=== PATIENT | male | born 1980 | race Two or more races ===

== ENCOUNTER 2017-12-23 13:00 | Inpatient (IN) | payer OTHER ==
[~2017-12-23] VITALS: Ht 172.7 cm; Wt 103.9 kg
[2017-12-23 13:14] VITALS: BP_SYST 149
[2017-12-23 13:53] LABS: EOSINOPHILS # (AUTO) 0.3 K/uL (0.0-0.4); EOSINOPHILS % (AUTO) 3.7 % (0.0-4.0); HEMATOCRIT 31.4 % (36-54); HEMOGLOBIN 10.1 g/dL (14.0-18.0); LYMPHOCYTES # (AUTO) 1.3 K/uL (1.0-5.5); LYMPHOCYTES % (AUTO) 19.5 % (20.5-51.5); MEAN CORPUSCULAR HEMOGLOBIN 29 pg (27-31); MEAN CORPUSCULAR HGB CONC 32 % (32-36); MEAN CORPUSCULAR VOLUME 89 fL (79.0-98.0); MONOCYTES # (AUTO) 0.4 K/uL (0.0-1.0); MONOCYTES % (AUTO) 6.5 % (1.7-9.3); PLATELET COUNT (AUTO) 259 K/uL (130-430); RED BLOOD CELL COUNT(AUTO) 3.55 MIL/uL (4.2-6.2); RED CELL DISTRIBUTION WIDTH 15.8 % (9.0-15.0); WHITE BLOOD COUNT (AUTO) 6.8 K/uL (4.8-10.8)
[2017-12-23 13:56] LABS: BASOPHILS % (AUTO) 0.5 % (0.0-2.0); NEUTROPHILS # (AUTO) 4.8 K/uL (1.8-7.7); NEUTROPHILS % (AUTO) 69.8 % (40.0-70.0)
[2017-12-23] MEDS ORDERED: GLIM1TAB PO (14:08)
[2017-12-23] MEDS ORDERED: COR12.5 PO (14:08)
[2017-12-23] MEDS ORDERED: FURO-149 PO (14:08)
[2017-12-23 14:16] LABS: CALCIUM 8.1 mg/dL (8.4-11.0); POTASSIUM 4.6 mmol/L (3.5-5.1)
[2017-12-23 14:21] LABS: ALBUMIN 1.8 g/dL (3.4-4.8); CREATININE 9.71 mg/dL (0.55-1.30); PROTHROMBIN TIME 10.4 SECS (9.5-12.5); TOTAL BILIRUBIN 0.3 mg/dL (0.0-1.0)
[2017-12-23 14:45] LABS: CKMB RELATIVE INDEX 1.6 (0.0-2.9); CREATINE KINASE MB 8.6 ng/mL (0-3.6)
[2017-12-23] MEDS ORDERED: INSULIN ASPART 100 UNITS/ML, 10 ML VIAL (NovoLOG) SUBCUT PRN (15:30)
[2017-12-23 15:54] VITALS: BP_SYST 155
[2017-12-23 16:00] VITALS: BP_SYST 159
[2017-12-23] MEDS ORDERED: TUBERCULIN,PURIF.PROT.DERIV. 0.1 ML SYR ID ONE (17:00)
[2017-12-23] MEDS: FUROSEMIDE 100 MG in D5W 90 ML IV SCH (18:41)
[2017-12-23 19:57] LABS: TOTAL IRON BIND. CAPACITY 242 ug/dL (250-450)
[2017-12-23 20:48] VITALS: BP_SYST 148
[2017-12-23] MEDS: CARVEDILOL 6.25 MG TABLET (COREG) PO SCH (21:00)
[2017-12-24 00:31] VITALS: BP_SYST 151
[2017-12-24 02:01] LABS: BILIRUBIN,URINE NEGATIVE (NEGATIVE); BLOOD, URINE 1+ (NEGATIVE); CLARITY/URINE CLEAR (CLEAR); COLOR,URINE YELLOW (YELLOW); GLUCOSE,URINE 1+ (NEGATIVE); KETONES,URINE NEGATIVE (NEGATIVE); LEUKOCYTE ESTERASE ,URINE NEGATIVE (NEGATIVE); NITRITE, URINE NEGATIVE (NEGATIVE); PROTEIN URINE 3+ (NEGATIVE); UROBILINOGEN,URINE 0.2 (0.2-1.0)
[2017-12-24 02:18] LABS: BACTERIA,URINE FEW /HPF (None Seen); WBC,URINE 0-3 /HPF (0-3)
[2017-12-24 02:19] LABS: HYALINE CASTS, URINE 0-10 /LPF (None Seen); URINE AMORPHOUS URATE 1+ /HPF (None Seen)
[2017-12-24 04:30] VITALS: BP_SYST 153
[2017-12-24 06:41] LABS: BASOPHILS # (AUTO) 0.1 K/uL (0.0-0.2); BASOPHILS % (AUTO) 1.3 % (0.0-2.0); EOSINOPHILS # (AUTO) 0.3 K/uL (0.0-0.4); EOSINOPHILS % (AUTO) 5.2 % (0.0-4.0); HEMATOCRIT 30.6 % (36-54); HEMOGLOBIN 9.7 g/dL (14.0-18.0); LYMPHOCYTES # (AUTO) 1.7 K/uL (1.0-5.5); LYMPHOCYTES % (AUTO) 25.8 % (20.5-51.5); MEAN CORPUSCULAR HEMOGLOBIN 28 pg (27-31); MEAN CORPUSCULAR HGB CONC 32 % (32-36); MEAN CORPUSCULAR VOLUME 88 fL (79.0-98.0); MONOCYTES # (AUTO) 0.5 K/uL (0.0-1.0); MONOCYTES % (AUTO) 8.4 % (1.7-9.3); NEUTROPHILS # (AUTO) 3.9 K/uL (1.8-7.7); NEUTROPHILS % (AUTO) 59.3 % (40.0-70.0); PLATELET COUNT (AUTO) 239 K/uL (130-430); RED BLOOD CELL COUNT(AUTO) 3.48 MIL/uL (4.2-6.2); RED CELL DISTRIBUTION WIDTH 15.8 % (9.0-15.0); WHITE BLOOD COUNT (AUTO) 6.5 K/uL (4.8-10.8)
[2017-12-24 07:01] LABS: ALBUMIN 1.5 g/dL (3.4-4.8); CALCIUM 7.9 mg/dL (8.4-11.0); POTASSIUM 4.7 mmol/L (3.5-5.1); TOTAL BILIRUBIN 0.3 mg/dL (0.0-1.0)
[2017-12-24 07:06] LABS: CREATININE 10.16 mg/dL (0.55-1.30)
[2017-12-24 07:57] VITALS: BP_SYST 138
[2017-12-24] MEDS: CARVEDILOL 6.25 MG TABLET (COREG) PO SCH ×2 (08:01→21:41)
[2017-12-24 12:27] VITALS: BP_SYST 152
[2017-12-24] MEDS ORDERED: DEXTROSE 50% JECT 50 ML DISP.SYRIN IVP ONE (13:00)
[2017-12-24] MEDS ORDERED: NS 100 ML BAG IV ONE (13:36)
[2017-12-24] MEDS ORDERED: PROPOFOL 200MG/ 20ML VIAL (DIPRIVAN) IV ONE (13:36)
[2017-12-24] MEDS ORDERED: MIDAZOLAM HCL 5 MG/5 ML VIAL IVP ONE (13:36)
[2017-12-24] MEDS ORDERED: HEPARIN SODIUM,PORCINE 5000 UNITS/ML VIAL SUBCUT ONE (13:36)
[2017-12-24] MEDS ORDERED: LIDOCAINE 2%, 20 ML MDV INJ ONE (13:36)
[2017-12-24] MEDS ORDERED: NS 1000 ML IV.SOLN IV ONE (13:36)
[2017-12-24] MEDS ORDERED: LIDOCAINE 1% 10 MG/ML, 20 ML MDV INJ ONE (13:36)
[2017-12-24] MEDS ORDERED: CEFAZOLIN 1 GM IVPB PREMIX 50 ML IV ONE (13:36)
[2017-12-24] MEDS ORDERED: fentaNYL CITRATE/PF 100 MCG/2 ML AMP IVP ONE (13:36)
[2017-12-24] MEDS ORDERED: ONDANSETRON HCL 4 MG/2 ML VIAL IVP ONE ×2 (13:36→13:45)
[2017-12-24] MEDS ORDERED: HYDROmorphone 1 MG INJ. 1 MG/ML AMPUL IVP PRN (13:45)
[2017-12-24] MEDS ORDERED: MIDAZOLAM HCL 5 MG/5 ML VIAL IVP PRN (13:45)
[2017-12-24] MEDS ORDERED: MEPERIDINE HCL/PF 25 MG/ML DISP.SYRIN IVP PRN (13:45)
[2017-12-24] MEDS ORDERED: fentaNYL CITRATE/PF 100 MCG/2 ML AMP IVP PRN (13:45)
[2017-12-24] MEDS ORDERED: NALOXONE HCL 0.4 MG/ML AMP (NARCAN) IVP ONE (13:45)
[2017-12-24] MEDS: FUROSEMIDE 100 MG in D5W 90 ML IV SCH (13:47)
[2017-12-24 17:48] VITALS: BP_SYST 143
[2017-12-24 20:00] VITALS: BP_SYST 137
[2017-12-25 00:15] VITALS: BP_SYST 104
[2017-12-25 07:52] VITALS: BP_SYST 111
[2017-12-25 08:27] LABS: HEPATITIS A AB, IgM Negative (Negative); HEPATITIS B CORE AB, IgM Negative (Negative); HEPATITIS B SURFACE AG Negative (Negative)
[2017-12-25] MEDS: FUROSEMIDE 100 MG in D5W 90 ML IV SCH (08:42)
[2017-12-25 09:09] LABS: FOLATE (FOLIC ACID) 11.7 ng/mL (>3.0)
[2017-12-25] MEDS: CARVEDILOL 6.25 MG TABLET (COREG) PO SCH ×2 (09:11→21:41)
[2017-12-25 12:26] VITALS: BP_SYST 122
[2017-12-25 14:11] LABS: CALCIUM 8.2 mg/dL (8.4-11.0); POTASSIUM 4.5 mmol/L (3.5-5.1)
[2017-12-25 14:17] LABS: CREATININE 8.03 mg/dL (0.55-1.30)
[2017-12-25 16:56] VITALS: BP_SYST 147
[2017-12-25 20:07] VITALS: BP_SYST 155
[2017-12-25] MEDS ORDERED: NEPHROVITE, (FOLIC ACID/VITAMIN B COMP W-C 1 TAB) PO ONE (22:00)
[2017-12-26 00:36] VITALS: BP_SYST 126
[2017-12-26 04:45] VITALS: BP_SYST 116
[2017-12-26 08:00] VITALS: BP_SYST 130
[2017-12-26] MEDS ORDERED: DEXTROSE 50%-WATER 50 ML DISP.SYRIN IVP PRN ×2 (08:00)
[2017-12-26] MEDS ORDERED: GLUCOSE 15 GM GEL (in 37.5 GM TUBE) PO PRN ×2 (08:00)
[2017-12-26] MEDS: NEPHROVITE, (FOLIC ACID/VITAMIN B COMP W-C 1 TAB) PO SCH (09:00)
[2017-12-26] MEDS: CARVEDILOL 6.25 MG TABLET (COREG) PO SCH ×2 (09:00→20:09)
[2017-12-26 12:20] VITALS: BP_SYST 147
[2017-12-26 16:16] VITALS: BP_SYST 151
[2017-12-26 20:00] VITALS: BP_SYST 161
[2017-12-26] MEDS: SOD FERRIC GLUC COMPLEX/SUC 125 MG in NS 100 ML IV SCH ×2 (20:09→22:41)
[2017-12-27 01:03] VITALS: BP_SYST 147
[2017-12-27 08:00] VITALS: BP_SYST 148
[2017-12-27] MEDS: CARVEDILOL 6.25 MG TABLET (COREG) PO SCH ×2 (09:11→20:16)
[2017-12-27] MEDS: NEPHROVITE, (FOLIC ACID/VITAMIN B COMP W-C 1 TAB) PO SCH (09:11)
[2017-12-27 12:15] VITALS: BP_SYST 144
[2017-12-27] MEDS: SOD FERRIC GLUC COMPLEX/SUC 125 MG in NS 100 ML IV SCH (13:23)
[2017-12-27 16:20] VITALS: BP_SYST 155
[2017-12-27 20:00] VITALS: BP_SYST 150
[2017-12-28] VITALS: BP_SYST 139
[2017-12-28 08:02] VITALS: BP_SYST 145
[2017-12-28] MEDS: CARVEDILOL 6.25 MG TABLET (COREG) PO SCH (08:46)
[2017-12-28] MEDS: NEPHROVITE, (FOLIC ACID/VITAMIN B COMP W-C 1 TAB) PO SCH (08:46)
[2017-12-28 12:32] VITALS: BP_SYST 148
[2017-12-28] MEDS: SOD FERRIC GLUC COMPLEX/SUC 125 MG in NS 100 ML IV SCH (16:12)
[2017-12-28 16:35] VITALS: BP_SYST 148
[2017-12-28] MEDS ORDERED: EPOETIN ALFA 10,000 UNITS/ML VIAL SUBCUT SCH (17:00)
[2017-12-28 18:06] VITALS: BP_SYST 148
[2017-12-28] MEDS ORDERED: CARV6.2554 PO (18:17)
== END 2017-12-28 18:40 | disposition home or self-care (01) | DRG 682 ==
LOC: SED 13:00 → STU 15:25
PROVIDERS: ADMIT Internal Medicine; ATTEND Internal Medicine
PROC: B5181ZA Fluoroscopy of Superior Vena Cava using Low Osmolar Contrast, Guidance (ICD-10-PCS; 2017-12-24)
PROC: 5A1D70Z Performance of Urinary Filtration, Intermittent, Less than 6 Hours Per Day (ICD-10-PCS; 2017-12-24)
PROC: 02HV33Z Insertion of Infusion Device into Superior Vena Cava, Percutaneous Approach (ICD-10-PCS; principal; 2017-12-24 11:00)
PROC: 5A1D70Z Performance of Urinary Filtration, Intermittent, Less than 6 Hours Per Day (ICD-10-PCS; 2017-12-26)
PROC: 5A1D70Z Performance of Urinary Filtration, Intermittent, Less than 6 Hours Per Day (ICD-10-PCS; 2017-12-28)
DX: I12.0 Hypertensive chronic kidney disease with stage 5 chronic kidney disease or end stage renal disease (principal); E43 Unspecified severe protein-calorie malnutrition; N18.6 End stage renal disease; E11.22 Type 2 diabetes mellitus with diabetic chronic kidney disease; Z83.3 Family history of diabetes mellitus; Z79.4 Long term (current) use of insulin; Z68.34 Body mass index [BMI] 34.0-34.9, adult; D64.9 Anemia, unspecified
CPT/HCPCS: 36415; 71045; 76000; 80048; 80053; 80074; 81000-TC; 82550-TC; 82553-TC; 82607; 82728; 82746; 82948; 82962; 83540-TC; 83550-TC; 83880; 83970; 84100-TC; 84443-TC; 84484; 85025; 85610-TC; 85730-TC; 86580; 86886; 86900; 86901; 87081; 90935; 90937; 93005; 93971; 99285; C1750; J0690; J0885; J1644; J1815; J1940; J2001; J2250; J2405; J2704; J2916; J3010; J7030; J7050; J7060